=== PATIENT | female | born 1955 | race Caucasian/White ===

== ENCOUNTER 2019-01-26 09:42 | Outpatient (CLI) | payer BC ==
[2019-01-26] MEDS ORDERED: Gadobenate Dimeglumine 529 MG/1 ML (20ML VIAL) ONE (10:39)
--- NOTE | 2019-01-26 16:03 | MRI ---
MRI ABDOMEN WITH AND WITHOUT IV CONTRAST AND MRCP: Date: 01/26/19 HISTORY: Abnormal liver enzymes after gallbladder removal in 2018. FINDINGS: The patient is post cholecystectomy. No intra or extrahepatic biliary ductal dilatation is seen. The common duct measures 5.0 mm in diameter. No filling defects are seen to suggest choledocholithiasis. The liver, spleen, pancreas, adrenal glands, and right kidney are normal. Tiny cysts are seen in the left kidney. No free fluid or lymphadenopathy is noted. There are degenerative changes in the spine. The bone marrow signal is normal. There is no evidence of aneurysmal dilatation of the abdominal aort a. No abdominal wall hernia is seen. IMPRESSION: 1. Status post cholecystectomy without evidence of biliary obstruction. 2. Tiny left renal cyst. POS: OFF
== END 2019-01-26 09:43 | disposition home or self-care (01) ==
LOC: BICMRI 09:42
PROVIDERS: ATTEND Internal Medicine Gastroenterology
DX: R94.5 Abnormal results of liver function studies (principal); N28.1 Cyst of kidney, acquired; Z90.49 Acquired absence of other specified parts of digestive tract
CPT/HCPCS: 74183; 82565

== ENCOUNTER 2019-06-28 11:16 | Outpatient (CLI) | payer BC ==
--- NOTE | 2019-06-28 12:01 | RAD ---
EXAM: XR Sacroiliac Joints >=3 View DATE: 06/28/2019 12:00 AM INDICATION: Persistent low back pain COMPARISON: None. FINDING: There is mild degenerative change of both SI joints. No periarticular erosions are evident. No acute osseous abnormality is evident. There is partial visualization of a right total hip prosthesis. IMPRESSION:Mild osteoarthrosis of the SI joints.
--- NOTE | 2019-06-28 12:03 | RAD ---
EXAM: XR Lumbar Spine Min 4 View DATE: 06/28/2019 12:00 AM INDICATION: Low back pain COMPARISON: None. FINDING: There are 5 lumbar type vertebra. There is suspected laminotomy changes involving left aspe ct of L5. There is mild disc degenerative disease at L5-S1 and L4-5. There is moderate disc degenerative disease at L3-4. There is very subtle retrolisthesis of L3 on L4 and L2 on L3 which is l ikely degenerative. No pars defects are demonstrated. There is mild facet osteoarthrosis at L4-5 and L5-S1. There is partial visualization of a right total hip prosthesis. There is diffuse osteopeni a. There is scattered vascular calcification involving abdominal aorta. IMPRESSION: 1. No acute fracture or subluxation demonstrated. 2. Mild spondylosis of the lumbar spine 3. Mild diffuse osteopenia
--- NOTE | 2019-06-28 12:05 | RAD ---
EXAM: XR Thoracic Spine 3 V STANDARD DATE: 06/28/2019 12:00 AM INDICATION: Back pain COMPARISON: None. FINDING: There is mild/moderate multilevel disc degenerative disease of the thoracic spine. No acute fracture or subluxation is evident. Spinal alignment is within normal limits. The visualized lungs are clear. IMPRESSION:[id number] thoracic spondylosis
== END 2019-06-28 11:17 | disposition home or self-care (01) ==
LOC: BICRAD 11:16
PROVIDERS: ATTEND Internal Medicine Rheumatology
DX: M54.5 Low back pain (principal); M54.9 Dorsalgia, unspecified; R29.898 Other symptoms and signs involving the musculoskeletal system; M47.814 Spondylosis without myelopathy or radiculopathy, thoracic region; M47.816 Spondylosis without myelopathy or radiculopathy, lumbar region; M85.88 Other specified disorders of bone density and structure, other site; M47.818 Spondylosis without myelopathy or radiculopathy, sacral and sacrococcygeal region
CPT/HCPCS: 72072; 72110; 72202

== ENCOUNTER 2019-08-16 11:57 | Outpatient (CLI) | payer BC ==
--- NOTE | 2019-08-16 12:20 | RAD ---
XR Lumbar Spine Bending Min 4V: 08/16/2019 12:00 AM CLINICAL INDICATION: Lumbar radiculopathy COMPARISON: 06/28/2019 FINDINGS: Fracture:No fracture. Arthropathy:Stable appearing degenerative change of the lumbar spine, with multilevel mild endplate d egeneration and moderate facet osteoarthritis, inferiorly. Grossly stable mild retrolisthesis, L2-3, and L3-4. No significant abnormal translational motion. Incidental findings:Atherosclerosis IMPRESSION: Stable exam. No abnormal translational motion identified.
== END 2019-08-16 11:58 | disposition home or self-care (01) ==
LOC: BICRAD 11:57
PROVIDERS: ATTEND Neurological Surgery
DX: M54.16 Radiculopathy, lumbar region (principal); M51.26 Other intervertebral disc displacement, lumbar region
CPT/HCPCS: 72120

== ENCOUNTER 2019-09-15 17:11 | Emergency (ER) | payer BC ==
[2019-09-15 17:50] LABS: Bilirubin Negative (Negative); Blood, Urine 2+ (Negative); Clarity Turbid (Clear); Glucose, Urine (Dipstick) Normal (Negative); Leukocyte 500 Leu/uL (Negative); Nitrite 2+ (Negative); Protein, Urine (Dipstick) 70 mg/dL (Neg-Trace); Squamous Epithelial 0-3 HPF (0-3); Urobilinogen 3 mg/dL (Less than 2); WBC/HPF Greater than 50 HPF (0-3)
[2019-09-15 17:59] LABS: Bacteria/HPF 2+ HPF (None Seen); Transitional Epithelial 0-3 HPF (None Seen)
[2019-09-15] MEDS ORDERED: Acetaminophen 500 MG TAB ONE (18:34)
[2019-09-15] MEDS ORDERED: Ondansetron PF 4 MG/2 ML Vial ONE (18:34)
[2019-09-15 18:45] LABS: Hemoglobin 14.7 g/dL (12.0-16.0); Mean Corpuscular Hemoglobin 32.5 pg (27.0-31.0); Mean Corpuscular Volume 95.5 fL (78.0-98.0); Mean Platelet Volume 8.9 fL (7.4-10.4); Platelet Count 159 thou/uL (130-400); RBC Distribution Width 11.4 % (11.5-14.5); Red Blood Cell (RBC) Count 4.54 mill/uL (4.20-5.40); White Blood Cell (WBC) Count 15.5 thou/uL (4.8-10.8)
[2019-09-15 18:57] LABS: ALT (SGPT) 47 U/L (8-55); AST (SGOT) 32 U/L (5-34); Albumin 3.7 g/dL (3.4-4.8); Alkaline Phosphatase 172 U/L (40-110); Anion Gap 13 mmol/L (10-20); BUN (Urea Nitrogen) 22 mg/dL (9.8-20.1); Bilirubin, Total 1.6 mg/dL (0.2-1.2); Calc. Creatinine Clearance 0 mL/min (70-130); Calcium 9.3 mg/dL (7.8-10.44); Carbon Dioxide 20 mmol/L (23-31); Chloride 102 mmol/L (98-107); Estimated GFR-MDRD 54; Globulin 3.6 g/dL (2.4-3.5); Glucose 184 mg/dL (80-115); Potassium 3.4 mmol/L (3.5-5.1); Protein, Total 7.3 g/dL (6.0-8.3); Sodium 132 mmol/L (136-145)
[2019-09-15 19:21] LABS: Band 26 % (5-11); Lymphocytes 6 % (21-51); MDiff Complete? YES; Monocytes 6 % (0-10); Neutrophil 57 % (42-75); Platelet Morphology Comment Appears Adequate; Polychromasia SLIGHT = 2-3 cells (100X) (0-2/hpf); Reactive Lymphocytes 5 % (0-10)
[2019-09-15] MEDS ORDERED: cefTRIAXone\\ROCEPHIN 2 GM VIAL ONE (19:22)
== END 2019-09-15 20:33 | disposition home or self-care (01) ==
LOC: ERS 17:11
DX: N39.0 Urinary tract infection, site not specified (principal); R11.2 Nausea with vomiting, unspecified; F41.9 Anxiety disorder, unspecified; F32.9 Major depressive disorder, single episode, unspecified; E11.9 Type 2 diabetes mellitus without complications; E78.5 Hyperlipidemia, unspecified; E78.00 Pure hypercholesterolemia, unspecified; M19.90 Unspecified osteoarthritis, unspecified site; F17.210 Nicotine dependence, cigarettes, uncomplicated; Z71.6 Tobacco abuse counseling
CPT/HCPCS: 36415; 80053; 81003; 81015; 83605; 85025; 87040; 87077; 87086; 87149; 87186; 96361; 96365; 96375; 99406; J0696; J2405

== ENCOUNTER 2019-10-12 08:14 | Outpatient (CLI) | payer BC ==
--- NOTE | 2019-10-12 10:17 | MRI ---
MR the lumbar spine with and without contrast INDICATION: Lumbar stenosis; lumbar disc degenerative disease; chronic low back pain; history of lumb ar spinal surgery COMPARISON: Prior MR the lumbar spine with and without contrast dated August 05, 2016 TECHNIQUE: Multiplanar multisequence MR images were obtained of lumbar spine with and without IV cont rast. Contrast: 17 cc of MultiHance. FINDINGS: Bone marrow: Normal. Distal spinal cord and conus: Normal. Conus is seen to terminate at the L1-L2 level. Visualized retroperitoneum and paraspinal soft tissues: Normal. No lymphadenopathy demonstrated. Vertebral levels: L5-S1: There is a broad-based disc bulge with facet hypertrophy inducing mild bilateral neural forami nal narrowing which is stable to the prior exam. There is a new left paracentral disc protrusion causing moderate narrowing of the left lateral recess with potential for contact of the traversing le ft S1 nerve root. This is best seen on image 38 of series 6 L4-5: There is a broad-based disc bulge with facet hypertrophy and ligamentum flavum hypertrophy abebe cing stable moderate central canal narrowing with moderate bilateral neural foraminal narrowing L3-4: There is postprocedural change of a left L3 laminectomy. The right paracentral extrusion is no longer identified. There is however a new broad-based disc herniation with facet hypertrophy inducing moderate to severe bilateral neural foraminal narrowing which have progressed from the prior exam. L2-3: There is a mild broad-based bulge and mild facet joint degenerative change but no appreciable c entral canal or neural foraminal narrowing. L1-L2: There is a broad-based disc bulge with a superimposed left paracentral disc extrusion that is stable. There is no appreciable neural foraminal narrowing. There is stable mild central canal T12-L1: No appreciable central canal or neuroforaminal narrowing. Postcontrast series: No abnormal enhancement demonstrated. IMPRESSION: 1. Interval development of a new left paracentral disc protrusion at L5-S1 causing moderate narrowing of the left lateral recess with potential for contact of the traversing left S1 nerve root. 2. Resolution of previously seen right paracentral disc extrusion at L3-4. There is however a new bro ad-based disc herniation with facet hypertrophy inducing worsening moderate to severe bilateral neural foraminal narrowing. 3. Stable moderate central canal narrowing and moderate bilateral neural foraminal narrowing at L4-5. 4. Stable left paracentral, cephalad extending, disc extrusion causing mild narrowing of the central canal at L1-L2.
[2019-10-12] MEDS ORDERED: Magnevist 469MG/ML 20 ML VIAL ONE (10:54)
== END 2019-10-12 08:15 | disposition home or self-care (01) ==
LOC: MRI 08:14
PROVIDERS: ATTEND Neurological Surgery
DX: M51.36 Other intervertebral disc degeneration, lumbar region (principal); M48.061 Spinal stenosis, lumbar region without neurogenic claudication; M51.27 Other intervertebral disc displacement, lumbosacral region; M51.26 Other intervertebral disc displacement, lumbar region; M48.07 Spinal stenosis, lumbosacral region; M47.816 Spondylosis without myelopathy or radiculopathy, lumbar region
CPT/HCPCS: 72158; A9579

== ENCOUNTER 2020-02-13 06:40 | Outpatient (CLI) | payer BC, OTHER ==
[2020-02-13 12:58] LABS: Hemoglobin 15.9 g/dL (12.0-16.0); Mean Corpuscular HGB CONC 32.7 g/dL (32.0-36.0); Mean Corpuscular Hemoglobin 32.3 pg (27.0-31.0); Mean Corpuscular Volume 98.7 fL (78.0-98.0); Mean Platelet Volume 9.8 fL (7.4-10.4); Platelet Count 151 thou/uL (130-400); RBC Distribution Width 11.9 % (11.5-14.5); Red Blood Cell (RBC) Count 4.91 mill/uL (4.20-5.40); White Blood Cell (WBC) Count 8.2 thou/uL (4.8-10.8)
[2020-02-13 13:03] LABS: INR-International Normal Ratio 0.9; PTT 28.2 SEC (22.9-36.1); Prothrombin Time 11.8 sec (12.0-14.7)
[2020-02-13 17:21] LABS: SARS-CoV-2 MS2 Positive; SARS-CoV-2 N Gene Negative; SARS-CoV-2 S Gene Negative; SARS-CoV-2 orf1ab Negative
== END 2020-02-13 06:41 | disposition home or self-care (01) ==
LOC: LABBT 06:40
PROVIDERS: ATTEND Neurological Surgery
DX: Z01.812 Encounter for preprocedural laboratory examination (principal); Z11.59 Encounter for screening for other viral diseases; M48.061 Spinal stenosis, lumbar region without neurogenic claudication
CPT/HCPCS: 85027; 85610; 85730; 87635; U0003

== ENCOUNTER 2020-02-16 05:35 | Day surgery (SDC) | payer BC ==
[2020-02-13 11:05] VITALS: BMI 26.5
[2020-02-16] MEDS ORDERED: Lidocaine 2% Jelly 5 ML TUBE ONE (05:47)
[2020-02-16] MEDS ORDERED: HYDROmorphone 0.5 MG/0.5 ML SYRINGE ONE (05:47)
[2020-02-16] MEDS ORDERED: Fentanyl 100 MCG/2 ML VIAL ONE ×3 (05:47→11:32)
[2020-02-16] MEDS ORDERED: Midazolam HCl 2 mg/2 ml Vial ONE ×2 (05:47→11:41)
[2020-02-16] MEDS ORDERED: EPINEPHrine 1 MG/ML AMP ONE (06:11)
[2020-02-16] MEDS ORDERED: Bupivacaine PF 0.5% 30 ML VIAL ONE (06:11)
[2020-02-16] MEDS ORDERED: Thrombin 5000 UNITS/5 ML VIAL ONE (06:11)
[2020-02-16] MEDS ORDERED: Mag-Al 1200 mg/1200 mg/30 ML UDCUP PO PRN (10:51)
[2020-02-16] MEDS ORDERED: Acetaminophen 325 MG TAB PO PRN (10:51)
[2020-02-16] MEDS ORDERED: Milk Of Magnesia 30 ML UDCUP PO PRN (10:51)
[2020-02-16] MEDS ORDERED: diphenhydrAMINE 50 MG/ML VIAL IVP PRN (10:51)
[2020-02-16] MEDS ORDERED: Prochlorperazine 10 MG/2 ML VIAL IM PRN (10:51)
[2020-02-16] MEDS ORDERED: Scopolamine 1.5 mg/72 hour Patch TD SCH (11:00)
[2020-02-16] MEDS ORDERED: Fentanyl 100 MCG/2 ML VIAL SLOW IVP PRN ×2 (11:08→11:12)
[2020-02-16] MEDS ORDERED: Glycopyrrolate 0.2 MG/ML 5 ML SYRINGE ONE (11:45)
[2020-02-16] MEDS ORDERED: PROPOFOL 200 MG/20 ML VIAL ONE (11:45)
[2020-02-16] MEDS ORDERED: Ondansetron PF 4 MG/2 ML Vial ONE (11:45)
[2020-02-16] MEDS ORDERED: Lidocaine 1% PF 5 ML VIAL ONE (11:45)
[2020-02-16] MEDS ORDERED: EPHEDRINE 25 MG/5 ML SYRINGE ONE (11:45)
[2020-02-16] MEDS ORDERED: Rocuronium Bromide 10 MG/ML (10ML VIAL) ONE (11:45)
[2020-02-16] MEDS ORDERED: Dexamethasone 20 MG/5 ML VIAL ONE (11:45)
--- NOTE | 2020-02-16 13:00 | OP ---
DATE OF PROCEDURE: 02/16/2020 MANAGER CHANNEL: Andrés Bennett PA-C PREOPERATIVE INDICATION: Treat pain and prevent neurological deterioration. 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 PROCEDURES PERFORMED: Reopening previous lumbar incision, decompressive laminectomy, medial facetectomy, foraminotomy at L4-L5. Left-sided partial hemilaminectomy, medial facetectomy, foraminotomy, L5-S1. Microsurgical repair of dura from bony and scar tissue adherence and erosion thereof. Operating microscope. PREOPERATIVE MEDICATION: Ancef 2 g IV. DRAIN NUMBER: Zero. DRAIN TYPE: None. DESCRIPTION OF PROCEDURE: The patient was brought to the operating room. General endotracheal anesthesia was induced. The patient was positioned prone on the operating table with the chest and hips supported by gel-filled chest rolls. A lateral fluoro radiograph gave us information that our incision would be slightly below her previous incision. This was marked out. The back was sterilely prepped and draped. We opened with a 10-blade knife and we controlled bleeding with bipolar and monopolar cautery. We used monopolar cautery to dissect through subcutaneous tissue to the thoracodorsal fascia. We incised the fascia in the midline and reflected the paraspinal muscles off the spinous process and lamina of L4, L5, and S1. Self-retaining retractors were placed. A lateral fluoro radiograph confirmed the levels upon which we were operating. We then used an Adson rongeur to remove the spinous processes of L4 and the superior portion of L5 and to thin the lamina at L4 and the left side at L5. Using Kerrison rongeur, we fashioned a laminectomy of L4 and the left side of L5. We widened our laminectomy defect by performing medial facetectomies on either side. At the top of L4, there was some scar tissue and bone adherent to the dura. We could not achieve any decompression without removal of the scar tissue. Operating microscope was brought into the field. Under microscopic magnification using microsurgical techniques, we removed the bone. The dura had been eroded and was quite thin. Arachnoid was seen under the area that we had dissected and a small amount of CSF was leaking. We brought a bovine pericardial patch into the field and we cut it to fit the defect in the dura. We sew this in using microsurgical techniques and a 6-0 Prolene. Valsalva was administered and there was no CSF leak. decompression of the lateral recesses by extending our medial facetectomies. We performed foraminotomies over the exiting L4 and L5 nerve root. At L5-S1 nerve root medially. The disk protrusion there was densely calcified and there was no loose disk material. We performed a foraminotomy over the nerve root and it was well decompressed by combination of our medial facetectomy and foraminotomy. We irrigated copiously with bacitracin irrigation. We controlled the epidural bleeding with gentle bipolar cautery. We waxed the bone edges. We applied DuraSeal tissue sealant. We reinforced our dural closure. We treated the wound with vancomycin powder. We closed that in anatomical layers. We applied a sterile dressing. This was a clean case, no contamination. Job ID: [id number]
[2020-02-16] MEDS: tiZANidine HCl 4 MG TAB PO PRN ×2 (13:49→21:37)
[2020-02-16] MEDS: CEFAZOLIN 2 GM in Premix Bag 1 BAG IVPB SCH ×2 (13:50→21:34)
[2020-02-16] MEDS ORDERED: Morphine 2 MG/ML SYRINGE SLOW IVP PRN (16:54)
[2020-02-16] MEDS ORDERED: Promethazine 25 MG TAB PO PRN (16:59)
[2020-02-16] MEDS ORDERED: Promethazine HCl 25 MG/ML VIAL IM PRN (17:04)
[2020-02-16] MEDS: Morphine 4 MG/ML VIAL SLOW IVP PRN ×3 (17:10→21:49)
[2020-02-16] MEDS: Sodium Chloride 0.9% 1,000 ML IV SCH ×2 (18:30→21:39)
[2020-02-16] MEDS: traMADol HCl 50 MG TAB PO PRN (19:59)
[2020-02-16] MEDS: Hydroxychloroquine Sulfate 200 MG TAB PO SCH (21:33)
[2020-02-16] MEDS ORDERED: IRBESARTAN 300MG PO SCH (23:45)
[2020-02-17] MEDS: traMADol HCl 50 MG TAB PO PRN (01:46)
[2020-02-17] MEDS: tiZANidine HCl 4 MG TAB PO PRN (03:43)
[2020-02-17] MEDS: Sodium Chloride 0.9% 1,000 ML IV SCH (03:44)
[2020-02-17] MEDS: Morphine 4 MG/ML VIAL SLOW IVP PRN (05:09)
[2020-02-17] MEDS ORDERED: Aspirin Chewable 81 MG TAB PO SCH (09:00)
[2020-02-17] MEDS ORDERED: Losartan 25 MG TAB PO SCH (09:00)
[2020-02-17] MEDS ORDERED: IRBESARTAN 300MG PO SCH (09:00)
[2020-02-17] MEDS ORDERED: Amlodipine 5 MG TAB PO SCH (09:00)
[2020-02-17] MEDS: Hydroxychloroquine Sulfate 200 MG TAB PO SCH (09:01)
[2020-02-17 11:21] VITALS: BP 144/83; TEMP 99
--- NOTE | 2020-02-17 13:21 | PRG ---
DATE OF SERVICE: 02/17/2020 Ms. Beasley is doing very well, postoperative day #1 from lumbar decompression. She has minimal headache, but has already been mobilizing this morning after being flat overnight. She is tolerating orals with improvement in her pain. Her dressing is dry. I have educated her in regard to the intraoperative findings and postoperative expectations including if she develops increased postural headache, she can simply lay down and attempt activity an hour later. She would like to go home and I suspect it is reasonable. She is already in street clothes. Job ID: [id number]
== END 2020-02-17 12:45 | disposition home or self-care (01) ==
LOC: SDC 05:35 → SURG A 10:51 → SDC 02-17 12:45
PROVIDERS: ATTEND Neurological Surgery
PROC: 01NB0ZZ Release Lumbar Nerve, Open Approach (ICD-10-PCS; principal; 2020-02-16)
DX: M48.062 Spinal stenosis, lumbar region with neurogenic claudication (principal); M51.17 Intervertebral disc disorders with radiculopathy, lumbosacral region; I10 Essential (primary) hypertension; E11.9 Type 2 diabetes mellitus without complications; M06.9 Rheumatoid arthritis, unspecified; G47.00 Insomnia, unspecified; F41.9 Anxiety disorder, unspecified; E78.5 Hyperlipidemia, unspecified; M19.90 Unspecified osteoarthritis, unspecified site; F17.210 Nicotine dependence, cigarettes, uncomplicated; Z79.82 Long term (current) use of aspirin; Z79.899 Other long term (current) drug therapy; Z98.890 Other specified postprocedural states
CPT/HCPCS: 76000; J0171; J0690; J0780; J1100; J1170; J2001; J2250; J2270; J2405; J2704; J3010; J3370; S0020

== ENCOUNTER 2021-04-11 12:30 | Outpatient (CLI) | payer OTHER | END 2021-04-11 12:31 | disposition home or self-care (01) | LOC: ULT 12:30 | PROVIDERS: ATTEND Family Medicine Sports Medicine | DX: G62.9 Polyneuropathy, unspecified (principal); I70.202 Unspecified atherosclerosis of native arteries of extremities, left leg | CPT/HCPCS: 93923; 93970 ==